=== PATIENT | male | born 1965 | race American Indian/Alaskan Native ===

== ENCOUNTER 2017-06-09 14:19 | Emergency (ER) | payer OTHER ==
[2017-06-09 14:47] LABS: Basophils % (Auto) 0.5 % (0.0-1.8); Eosinophils % (Auto) 6.6 % (0.0-4.3); Hematocrit 46.9 % (35.5-45.6); Hemoglobin 15.5 gm/dl (11.8-15.2); Mean Corpuscular HGB Conc 33 % (32-34); Mean Corpuscular Hemoglobin 30 pg (28-32); Mean Corpuscular Volume 90 fl (84-94); Platelet Count 234 K/mm3 (140-440); Red Blood Count 5.22 M/mm3 (3.65-5.03); Red Cell Distribution Width 14.2 % (13.2-15.2); White Blood Count 5.9 K/mm3 (4.5-11.0)
--- NOTE | 2017-06-09 14:53 | Emergency Department Report ---
Chief Complaint: Abdominal Pain Stated Complaint: ABDOMINAL PAIN Time Seen by Provider: 06/09/17 14:49 - HPI History of Present Illness: Patient with H/O HTN and asthma presents to ED with c/o constant LUQ pain x 1 week; also admits to some intermittent sternal CP and left rib pain with deep inspiration; denies N/V, fevers cough, and wheezing; admits he ran out of his HCTZ 1 month ago, hasn't been taking it; denies H/O pancreatitis and excessive alcohol use - ROS Review of Systems: Negative except for those stated in HPI - Exam Vital Signs: Vital Signs 06/09/17 14:24 Temperature 98 F Pulse Rate 62 Respiratory 18 Rate Blood Pressure 185/116 O2 Sat by Pulse 100 Oximetry Physical Exam: NAD Obese RRR CTAB Abd - TTP LUQ MSE screening note: Focused history and physical exam performed. Due to findings the following was ordered: EKG, CXR, labs Patient to be seen by provider in Main ED ED Medical Decision Making - Lab Data Result diagrams: 06/09/17 14:29 ED Disposition for MSE Condition: Stable
[2017-06-09 15:00] LABS: Alanine Aminotransferase 27 units/L (7-56); Albumin/Globulin Ratio 1.3 %; Alkaline Phosphatase 93 units/L (35-129); Anion Gap 17 mmol/L; BUN/Creatinine Ratio 13; Blood Urea Nitrogen 13 mg/dL (9-20); Carbon Dioxide 28 mmol/L (22-30); Chloride 99.8 mmol/L (98-107); Glucose 92 mg/dL (75-100); Lipase 49 units/L (13-60); Potassium 4.5 mmol/L (3.6-5.0); Sodium 140 mmol/L (137-145)
--- NOTE | 2017-06-09 15:36 | XRay Report ---
ROUTINE CHEST, TWO VIEWS: HISTORY: Chest pain, shortness of breath. The trachea, heart, mediastinal contour, lung yoon and bony thorax are unremarkable. The aorta is ectatic but well-defined. IMPRESSION: No acute cardiopulmonary process.
[2017-06-09 16:30] LABS: Bilirubin,Urine NEG (Negative); Blood,Urine NEG (Negative); Ketones,Urine NEG (Negative); Leukocyte Esterase,Urine NEG (Negative); Nitrite,Urine NEG (Negative); Protein,Urine <15 mg/dL mg/dL (Negative); RBC,Urine < 1.0 /HPF (0.0-6.0); Urobilinogen,Urine < 2.0 mg/dL (<2.0); WBC,Urine < 1.0 /HPF (0.0-6.0)
--- NOTE | 2017-06-10 02:39 | Emergency Department Report ---
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 Patient denied any nausea or vomiting or diarrhea no fever. Patient also complaint of right knee swelling mainly to the posterior side going on for 2 years. MD Complaint: abdominal pain Severity scale (0 -10): 5 - Related Data Home Medications Medication Instructions Recorded Confirmed Last Taken No Known Home Medications [No 06/10/17 06/10/17 Unknown Reported Home Medications] Allergies Allergy/AdvReac Type Severity Reaction Status Date / Time No Known Allergies Allergy Unverified 08/31/13 16:44 ED Review of Systems ROS: Stated complaint: ABDOMINAL PAIN Other details as noted in HPI Comment: All other systems reviewed and negative Respiratory: denies: cough Cardiovascular: denies: chest pain, palpitations Gastrointestinal: abdominal pain. denies: nausea, vomiting, diarrhea, constipation, hematemesis, melena, hematochezia Genitourinary: denies: urgency, frequency, hematuria Neurological: denies: headache, weakness, numbness ED Past Medical Hx - Past Medical History Hx Hypertension: Yes Hx Arthritis: Yes Hx Asthma: Yes - Surgical History Additional Surgical History: hernia repair x 3. left ACL repair. right wrist surgery - Social History Smoking Status: Unknown if ever smoked Substance Use Type: Alcohol - Medications Home Medications: Home Medications Medication Instructions Recorded Confirmed Last Taken Type No Known Home Medications [No 06/10/17 06/10/17 Unknown History Reported Home Medications] ED Physical Exam - General Limitations: No Limitations General appearance: alert, in no apparent distress - Head Head exam: Present: normocephalic - Eye Eye exam: Present: normal appearance Pupils: Present: normal accommodation - ENT ENT exam: Present: normal exam, normal orophraynx, mucous membranes moist. Absent: mucous membranes dry - Neck Neck exam: Present: normal inspection, full ROM. Absent: tenderness, meningismus, lymphadenopathy, thyromegaly - Respiratory Respiratory exam: Present: normal lung sounds bilaterally, chest wall tenderness. Absent: respiratory distress, wheezes, rales, rhonchi, stridor, accessory muscle use, decreased breath sounds, prolonged expiratory - Cardiovascular Cardiovascular Exam: Present: regular rate, normal rhythm, normal heart sounds - GI/Abdominal GI/Abdominal exam: Present: soft, normal bowel sounds. Absent: distended, tenderness, guarding, rebound, rigid, organomegaly, mass, bruit, pulsatile mass , hernia - Extremities Exam Extremities exam: Present: normal inspection, other (right knee show and Pedroza' s cyst) - Back Exam Back exam: Present: normal inspection, full ROM, muscle spasm. Absent: tenderness, CVA tenderness (R), CVA tenderness (L), paraspinal tenderness - Neurological Exam Neurological exam: Present: alert, oriented X3, CN II-XII intact, normal gait - Skin Skin exam: Present: warm, intact, normal color. Absent: cyanosis, diaphoretic, erythema, urticaria ED Course Vital Signs 06/09/17 06/09/17 06/10/17 14:24 23:14 00:36 Temperature 98 F 97.9 F 98.0 F Pulse Rate 62 55 L 55 L Respiratory 18 18 22 Rate Blood Pressure 185/116 168/118 Blood Pressure 168/108 [Left] O2 Sat by Pulse 100 95 95 Oximetry ED Medical Decision Making - Lab Data Result diagrams: 06/09/17 14:29 06/09/17 14:29 - EKG Data -: EKG Interpreted by Me EKG shows normal: sinus rhythm Rate: normal - EKG Data Interpretation: no acute changes - Radiology Data Radiology results: report reviewed Chest x-ray showed no acute finding. Critical care attestation.: If time is entered above; I have spent that time in minutes in the direct care of this critically ill patient, excluding procedure time. ED Disposition Clinical Impression: Abdominal pain, Pedroza's cyst of knee Disposition: DC-01 TO HOME OR SELFCARE Is pt being admited?: No Condition: Stable Instructions: Abdominal Pain (ED), Pedroza's Cyst (ED) Referrals: PRIMARY CARE, [Primary Care Provider] - 3-5 Days
[2017-06-10] MEDS ORDERED: TORADOL IM ONE (03:04)
[2017-06-10] MEDS ORDERED: TORADOL ONE (03:05)
[2017-06-10 03:10] VITALS: BP 155/98
== END 2017-06-10 03:17 | disposition home or self-care (01) ==
LOC: ED 14:19
DX: R10.13 Epigastric pain (principal); M71.21 Synovial cyst of popliteal space [Baker], right knee; I10 Essential (primary) hypertension; M19.90 Unspecified osteoarthritis, unspecified site
CPT/HCPCS: 36415; 71020; 80053; 81001; 83690; 84484; 85025; 93005; 93010; 96372; 99284; J1885

== ENCOUNTER 2017-08-05 19:17 | Emergency (ER) | payer SELFPAY ==
[2017-08-05 21:51] VITALS: BP 144/105
== END 2017-08-06 01:00 | disposition left against medical advice (07) ==
LOC: ED 19:17
DX: J11.1 Influenza due to unidentified influenza virus with other respiratory manifestations (principal); Z53.21 Procedure and treatment not carried out due to patient leaving prior to being seen by health care provider